=== PATIENT | male | born 1970 | race African-American/Black ===

== ENCOUNTER 2022-06-17 12:13 | Inpatient (IN) ==
[2022-06-17] MEDS ORDERED: MORPHINE SULFATE INJ 4 MG IVP ONE (12:26)
--- NOTE | 2022-06-17 12:26 | DR.ABDMALE ---
HPI Time seen Time Seen by Provider: 06/17/22 12:18 Complaint Chief Complaint Doctors Comments: 52 y/o male brought in for abdominal pain by EMS. Started yesterday, gradual onset. Located across lower abdomen, does not radiate. + worse with moving, coughing. Nothing makes it better. + nausea, vomited once. No bowel of bladder complaints. Denies fever, URI symptoms. Reviewed Nurses Notes Review: Yes Source History provided by:: patient Mode of arrival Mode of Arrival: EMS PMH PMH Past Medical History: Arthritis and Hypertension Past Surgical History: Yes Surgical History: Ortho Surgery Family History Family Medical History: Diabetes Mellitus, Cancer and Hypertension Social History Does patient currently use any type of tobacco product: Yes Alcohol Use: DAILY Do you use any recreational Drugs:: No ROS Review of Systems Constitutional: Weakness Eyes: No Symptoms Reported ENTM: No Symptoms Reported Respiratoy: No Symptoms Reported Cardiovascular: No Symptoms Reported Gastrointestinal/Abdominal: See HPI Genitourinary: No Symptoms Reported Neurological: No Symptoms Reported Musculoskeletal: No Symptoms Reported Integumentary: No Symptoms Reported Psychiatric: No Symptoms Reported All Other Systems: Reviewed and Negative PE Vital Signs Vital Signs: Temp Pulse Resp BP BP Pulse Ox O2 Del Method 08/18/19 11:48 128/96 06/17/22 15:00 96 H 99 06/17/22 15:00 123/89 06/17/22 14:45 94 H 99 06/17/22 14:31 132/95 06/17/22 14:31 95 H 99 06/17/22 14:30 108 H 100 06/17/22 14:15 96 H 99 06/17/22 14:00 93 H 100 06/17/22 14:00 133/91 06/17/22 13:57 20 06/17/22 13:51 93 H 99 06/17/22 13:30 122/78 06/17/22 13:06 92 H 100 06/17/22 13:27 20 06/17/22 13:00 91 H 100 06/17/22 13:00 144/92 06/17/22 12:45 92 H 100 06/17/22 12:30 97 H 100 06/17/22 12:30 148/114 06/17/22 12:17 98 H 100 06/17/22 12:34 20 06/17/22 12:19 97.9 F 101 H 22 143/101 100 Room Air 09/10/21 11:38 140/86 General General Appearance: Alert and In No Apparent Distress Eyes Eye exam: PERRL and EOMI ENT ENT Exam: Mucous Membranes Moist Neck Neck Exam: Normal Inspection Respiratory Respiratory Exam: Normal Lung Sounds Bilat; negative Accessory Muscle Use or Respiratory Distress Cardiovascular Cardiovascular Exam: Regular Rate, Normal Rhythm and Normal Heart Sounds Abdominal Exam Abdominal Exam: Tenderness, Guarding, Rebound and Hypoactive Bowel Sounds Extremeties Extremities Exam: Normal Inspection and Full ROM; negative Edema Neurologic Neurological Exam: Alert, Oriented X3 and CN II-XII Intact; negative Motor Sensory Deficit Skin Skin Exam: Warm and Dry COURSE Treatment Treatment: 52 y/o male with worsening abdominal pain since yesterday. Exam concerning for acute abdomen. W/u initiated. Pt given IV fluids, IV analgesia. Portable chest without obvious free air. Labs acceptable. CT abd/pelvis performed. + large amount of free air evident on scan. Radiologist believes perforation around 2nd portion of duodenum.ascending colon. Consulted with Dr Ortiz, general surgery. Pt given IV antibiotics, additional IV analgesia. He will take to surgery, admit. ROR Labs Reviewed Laboratory Results Reviewed?: Yes Result Diagrams: 06/17/22 12:27 06/17/22 12:27 Laboratory: WBC 9.2 X10^3/uL (3.6-10.0) 06/17/22 12: RBC 4.94 X10^6/uL (4.7-6.0) 06/17/22 12:27 Hgb 15.0 g/dL (13.5-18.0) 06/17/22 12: Hct 45.3 % (42.0-54.0) 06/17/22 12:27 MCV 91.7 fL (80.0-100.0) 06/17/22 12: MCH 30.4 pg (27.0-34.0) 06/17/22 12: MCHC 33.2 g/dL (33.0-35.0) 06/17/22 12: RDW 14.0 % (11.6-16.5) 06/17/22 12:27 Plt Count 305 X10^3/uL (150.0-450.0) 06/17/22 12:27 MPV 8.1 fL (7.4-11.0) 06/17/22 12: Neut % (Auto) 86.4 % (42.0-75.0) H 06/17/22 12: Lymph % (Auto) 9.6 % (21.0-51.0) L 06/17/22 12: [place] % (Auto) 3.8 % (0.0-13.0) 06/17/22 12: Eos % (Auto) 0.0 % (0.9-2.9) L 06/17/22 12: Baso % (Auto) 0.2 % (0.2-1.0) 06/17/22 12: Neut # (Auto) 8.0 x10^3/uL (2.2-4.8) H 06/17/22 12: Lymph # (Auto) 0.9 X10^3/uL (1.3-2.9) L 06/17/22 12: [place] # (Auto) 0.3 x10^3/uL (0.3-0.8) 06/17/22 12: Eos # (Auto) 0.0 x10^3/uL (0.0-0.2) 06/17/22 12: Baso # (Auto) 0.0 X10^3/uL (0.0-0.1) 06/17/22 12: Absolute Nucleated RBC 0.1 /100WBC 06/17/22 12: Sodium 134 mmol/L (136-145) L 06/17/22 12: Corrected Sodium 135 mmol/L (136-145) L 06/17/22 12: Potassium 4.6 mmol/L (3.5-5.1) 06/17/22 12: Chloride 98 mmol/L (98-107) 06/17/22 12: Carbon Dioxide 28.1 mmol/L (21-32) 06/17/22 12: BUN 17 mg/dL (7-18) 06/17/22 12: Creatinine 1.05 mg/dL (0.70-1.30) 06/17/22 12: Est GFR (MDRD) Af Amer > 60 (>60) 06/17/22 12: Est GFR (MDRD) Non-Af > 60 (>60) 06/17/22 12:27 Glucose 137 mg/dL (65-99) H 06/17/22 12:27 Calcium 8.5 mg/dL (8.5-10.1) 06/17/22 12:27 Corrected Calcium TNP 06/17/22 12:27 Total Bilirubin 1.20 mg/dL (0.2-1.0) H 06/17/22 12:27 AST 14 Units/L (15-37) L 06/17/22 12:27 ALT 13 Units/L (12-78) 06/17/22 12:27 Alkaline Phosphatase 53 Units/L (46-116) 06/17/22 12:27 Total Protein 7.4 g/dL (6.4-8.2) 06/17/22 12:27 Albumin 3.4 g/dL (3.4-5.0) 06/17/22 12:27 Globulin 4.0 g/dL (2.5-4.5) 06/17/22 12:27 Albumin/Globulin Ratio 0.9 Ratio (1.1-2.1) L 06/17/22 12:27 Lipase 114 Units/L (73-393) 06/17/22 12:27 Labs acceptable. XRAY XRAY Interpreted by: Self X-ray Results: CXR - normal. CT abd/pelvis - + lg amount of free air. EKG Rate: 91 [place]: RAD Rhythm: NSR ST: Normal Opioid Opioid Risk Tool Age (Daniel box if 16-45): No History of Preadolescent Sexual Abuse: No Total: 0 Total Score Risk Category: Low Risk Copyright: Erasmo LITTLE predicting aberrant behaviors Discharge Plan Diagnosis Discharge Problem: Intra-abdominal free air of unknown etiology Discharge Plan Patient Disposition: 09 ADMITTED INPATIENT Condition: Stable Prescriptions: No Action gabapentin 300 mg capsule 300 mg PO TID MDD 3 Qty: 30 0RF meloxicam 7.5 mg tablet 7.5 mg PO DAILY MDD 1 Qty: 30 0RF ciprofloxacin HCl [Cipro] 500 mg tablet 500 mg PO BID MDD 2 Qty: 20 0RF lisinopril [Zestril] 5 mg Tablet 5 mg PO BID Qty: 30 0RF Health Concerns: Post Hospitalization: new medications and changes needed to prevent readmission or further decline. Pt educated and given instructions on all concerns. Plan of Treatment: Continue with present treatment and follow up plan. Pt is to keep follow up appointment as instructed and take medications as ordered. Orders to Discharge Patient Discharge Orders: Transfer (Routine); Ordered 06/17/22 Ordered By: Juan David Nash Follow ups/Referrals Follow ups/Referrals: [facility],None [Primary Care Provider] - 3 days
[2022-06-17] MEDS ORDERED: MORPHINE SULFATE INJ 4 MG ONE (12:28)
[2022-06-17 12:33] LABS: BASOPHILS % (AUTO) 0.2 % (0.2-1.0); HEMATOCRIT 45.3 % (42.0-54.0); LYMPHOCYTES # (AUTO) 0.9 X10^3/uL (1.3-2.9); LYMPHOCYTES % (AUTO) 9.6 % (21.0-51.0); MEAN CORPUSCULAR HEMOGLOBIN 30.4 pg (27.0-34.0); MEAN CORPUSCULAR HGB CONC 33.2 g/dL (33.0-35.0); MEAN CORPUSCULAR VOLUME 91.7 fL (80.0-100.0); MEAN PLATELET VOLUME 8.1 fL (7.4-11.0); MONOCYTES # (AUTO) 0.3 x10^3/uL (0.3-0.8); MONOCYTES % (AUTO) 3.8 % (0.0-13.0); NEUTROPHILS % (AUTO) 86.4 % (42.0-75.0); RED BLOOD COUNT 4.94 X10^6/uL (4.7-6.0); WHITE BLOOD COUNT 9.2 X10^3/uL (3.6-10.0)
[2022-06-17 12:45] LABS: ALANINE AMINOTRANSFERASE 13 Units/L (12-78); ALBUMIN 3.4 g/dL (3.4-5.0); ALKALINE PHOSPHATASE 53 Units/L (46-116); ASPARTATE AMINO TRANSFERASE 14 Units/L (15-37); BLOOD UREA NITROGEN 17 mg/dL (7-18); CALCIUM 8.5 mg/dL (8.5-10.1); CARBON DIOXIDE 28.1 mmol/L (21-32); CHLORIDE 98 mmol/L (98-107); COR NA(FOR HYPERGLY) 135 mmol/L (136-145); CREATININE 1.05 mg/dL (0.70-1.30); LIPASE 114 Units/L (73-393); SODIUM 134 mmol/L (136-145); TOTAL PROTEIN 7.4 g/dL (6.4-8.2); eGFR NON BLACK RACES > 60 (>60)
--- NOTE | 2022-06-17 13:12 | RAD ---
HISTORYSOB, COUGH, ABD PAINSTUDYSingle-view chestCOMPARISONNone availableFINDINGSThe trachea is midline. The cardiac silhouette is unremarkable . The lungs are clear without focal infiltrate or effusion. The bony thorax is unremarkable.IMPRESSIONNo acute cardiopulmonary disease.Electronically signed by: OLYA VERGARA (Jun 17, 2022 13:11:35)
[2022-06-17] MEDS ORDERED: DILAUDID INJ IVP ONE (13:24)
[2022-06-17] MEDS ORDERED: DILAUDID INJ ONE ×2 (13:25→18:25)
[2022-06-17] MEDS ORDERED: LEVAQUIN PREMIX IV 750 MG 750 MG/150 ML BAG IV ONE ×2 (13:27→13:32)
[2022-06-17] MEDS ORDERED: FLAGYL IV PREMIX 500 MG BAG 500 MG/100 ML BAG IV ONE ×2 (13:27→13:31)
[2022-06-17] MEDS ORDERED: NS 1,000 ML IV 1,000 ML ONE (13:33)
[2022-06-17] MEDS ORDERED: NS 1,000 ML IV 1,000 ML IV SCH (14:00)
--- NOTE | 2022-06-17 14:07 | EKG ---
Test Reason : preop clearance Blood Pressure : */* mmHG Vent. Rate : 91 BPM Atrial Rate : 91 BPM P-R Int : 126 ms QRS Dur : 72 ms QT Int : 360 ms P-R-T Axes : 75 94 78 degrees QTc Int : 442 ms Normal sinus rhythm Rightward axis Septal infarct , age undetermined Abnormal ECG No previous ECGs available Confirmed by Jae Nichols ([id number]) on 06/20/2022 5:34:17 PM Referred By: Confirmed By: Jae Nichols
--- NOTE | 2022-06-17 14:38 | CT ---
HISTORYRUQ, LOWER ABD PAINSTUDYABDOMEN/PELVIS WITH CONCOMPARISONChest x-ray performed on same dayTECHNIQUEMultiple axial images of the abdomen and pelvis were obtained from the lung bases to the pubic symphysis after the administration of IV contrast. Dose reduction techniques including Automated Exposure Control (AEC) and adjustment of mA and kV were utilized.FINDINGS[Lung bases are clear. Heart size is normal. 3.2 x 2.1 by at least 5.4 cm intermediate density masses noted within the posterior mediastinum abutting the esophagus on axial image 5.No focal hepatic lesion. Gallbladder is moderately dilated without CT evidence of calcified stone or bile duct dilatation. The spleen is normal. Pancreas demonstrates ductal dilatation without obstructing stone or mass within the pancreatic head. Adrenal glands are normal. Kidneys are normal. There is inflammatory change and localized gas noted adjacent to the 2nd portion duodenum concerning for perforated duodenal ulcer. There is moderately inflamed, thick walled loops of left abdominal small bowel with moderate amount of free fluid throughout the abdomen and pelvis. The fluid is not definitely simple and may represent combination of low-density fluid and hematoma.Urinary bladder is distended. Prostate gland is unremarkable. The rectum is unremarkable. There are thick-walled loops of proximal transverse and ascending colon. Large volume free air is noted within the abdomen with multiple foci of gas within the pelvis. There is thickening of the peritoneal cavity consistent with peritonitis. Abdominal aorta is normal in caliber.IMPRESSIONLarge volume pneumoperitoneum and intermediate density abdominal and pelvic free fluid consistent with viscus perforation, given the localized inflammatory change and gas adjacent to the 2nd portion of the duodenum and ascending colon these with be the most likely source of perforation. Urgent surgical consultation is needed for further evaluation.Hyperemic, thick walled loops of left abdominal small bowel potentially are reactive to peritonitis; however underlying ischemic bowel is not excluded. Correlation with lactic acid levels and surgical consultation is needed for further evaluation.Additional chronic, incidental findings as described above.Approximate 3.2 x 2.1 x 5.4 cm intermediate density area/mass within the posterior mediastinal causing mild mass effect on the distal esophagus, given density this may represent trapped peritoneal fluid extending through the hiatus; however underlying solid mass in this location is not excluded. Recommend attention at time of surgery and potentially thoracic MRI with and without contrast for further evaluation as clinically warranted.Electronically signed by: DARIUS LARRY (Jun 17, 2022 14:37:34)
[2022-06-17] MEDS ORDERED: STERILE WATER IRRIGATION IR ONE (15:06)
[2022-06-17] MEDS ORDERED: DUONEB 0.5 MG/3 MG (3 mL) NEB ONE (15:28)
[2022-06-17 15:53] LABS: BILIRUBIN,URINE NEGATIVE (NEGATIVE); BLOOD/HEMOGLOBIN,URINE 1+ (NEGATIVE); GLUCOSE, URINE NEGATIVE (NEGATIVE); KETONES,URINE 1+ (NEGATIVE); LEUKOCYTE ESTERASE ,URINE 1+ (NEGATIVE); NITRITES,URINE NEGATIVE (NEGATIVE); PH,URINE 6.5 (5.0 - 8.0); PROTEIN,URINE 2+ (NEGATIVE); UROBILINOGEN,URINE 1+ (NORMAL)
[2022-06-17 16:06] LABS: APPEARANCE,URINE CLEAR (CLEAR); BACTERIA,URINE TRACE /HPF (NEGATIVE); COLOR,URINE DARK YELLOW (YELLOW); RBC,URINE 0-2 /HPF (0-3); SQUAMOUS EPITHELIAL CELL,UR RARE /HPF (NEGATIVE)
[2022-06-17] MEDS ORDERED: NEO-SYNEPHRINE INJ ONE (16:17)
[2022-06-17] MEDS ORDERED: DIPRIVAN VIAL 20 ML ONE (16:17)
[2022-06-17] MEDS ORDERED: MAGNESIUM SULFATE 50% INJ VIAL ONE (16:17)
[2022-06-17] MEDS ORDERED: ZEMURON 100 MG VIAL ONE (16:18)
[2022-06-17] MEDS ORDERED: QUELICIN (OR ANECTINE) ONE (16:18)
[2022-06-17] MEDS ORDERED: ZOFRAN INJ 4 MG VIAL ONE (16:18)
[2022-06-17] MEDS ORDERED: KETAMINE HCL ONE (16:25)
[2022-06-17] MEDS ORDERED: SUPRANE ONE ×2 (16:25→16:27)
[2022-06-17] MEDS ORDERED: FENTANYL VIAL INJ 250 mcg ONE (16:28)
[2022-06-17] MEDS ORDERED: ZOFRAN INJ 4 MG VIAL IVP PRN ×2 (16:33→18:40)
[2022-06-17] MEDS ORDERED: BENADRYL INJ 50 MG VIAL IVP PRN (16:33)
[2022-06-17] MEDS ORDERED: BARHEMSYS INJ IVP PRN (16:33)
[2022-06-17] MEDS ORDERED: POLYMYXIN B SULFATE ONE ×2 (16:41→17:13)
[2022-06-17] MEDS ORDERED: BRIDION ONE (17:00)
[2022-06-17] MEDS ORDERED: LR 1,000 ML IV 1,000 ML IV ONE (17:06)
[2022-06-17] MEDS: DILAUDID INJ IVP PRN ×4 (18:27→22:29)
[2022-06-17] MEDS ORDERED: DILAUDID INJ IVP PRN (18:39)
[2022-06-17] MEDS: D5 1/2 NS 1,000 ML 1,000 ML IV SCH (19:39)
[2022-06-17] MEDS: PROTONIX INJ 40 MG VIAL IVP SCH (20:54)
[2022-06-17] MEDS: FLAGYL IV PREMIX 500 MG BAG 500 MG/100 ML BAG IV SCH (20:55)
[2022-06-18] MEDS: D5 1/2 NS 1,000 ML 1,000 ML IV SCH ×5 (00:30→23:35)
[2022-06-18] MEDS: FLAGYL IV PREMIX 500 MG BAG 500 MG/100 ML BAG IV SCH ×3 (03:18→19:51)
[2022-06-18 05:08] LABS: BASOPHILS % (AUTO) 0.1 % (0.2-1.0); HEMATOCRIT 38.6 % (42.0-54.0); HEMOGLOBIN 13.1 g/dL (13.5-18.0); LYMPHOCYTES # (AUTO) 0.9 X10^3/uL (1.3-2.9); LYMPHOCYTES % (AUTO) 9.2 % (21.0-51.0); MEAN CORPUSCULAR HEMOGLOBIN 31.4 pg (27.0-34.0); MEAN CORPUSCULAR VOLUME 92.5 fL (80.0-100.0); MEAN PLATELET VOLUME 8.7 fL (7.4-11.0); MONOCYTES # (AUTO) 0.5 x10^3/uL (0.3-0.8); MONOCYTES % (AUTO) 5.2 % (0.0-13.0); NEUTROPHILS # (AUTO) 8.7 x10^3/uL (2.2-4.8); NEUTROPHILS % (AUTO) 85.5 % (42.0-75.0); RED BLOOD COUNT 4.17 X10^6/uL (4.7-6.0); RED CELL DISTRIBUTION WIDTH 13.9 % (11.6-16.5); WHITE BLOOD COUNT 10.2 X10^3/uL (3.6-10.0)
[2022-06-18] MEDS: DILAUDID INJ IVP PRN ×3 (05:21→21:07)
[2022-06-18 05:24] LABS: ALANINE AMINOTRANSFERASE 45 Units/L (12-78); ALBUMIN 2.5 g/dL (3.4-5.0); ALKALINE PHOSPHATASE 55 Units/L (46-116); ASPARTATE AMINO TRANSFERASE 58 Units/L (15-37); BLOOD UREA NITROGEN 22 mg/dL (7-18); CALCIUM 8.1 mg/dL (8.5-10.1); CARBON DIOXIDE 26.3 mmol/L (21-32); CHLORIDE 101 mmol/L (98-107); COR CA(FOR HYPOALB) 9.3 mg/dL (8.5-10.1); SODIUM 136 mmol/L (136-145); TOTAL PROTEIN 6.1 g/dL (6.4-8.2); eGFR NON BLACK RACES > 60 (>60)
[2022-06-18] MEDS: LEVAQUIN PREMIX IV 750 MG 750 MG/150 ML BAG IV SCH (09:20)
[2022-06-18] MEDS: PROTONIX INJ 40 MG VIAL IVP SCH ×2 (09:20→20:28)
--- NOTE | 2022-06-18 09:48 | DR.PROGNOT ---
HOSPITAL PROGRESS NOTE Progress Note for Day of: Progress Note Date: 06/18/22 Chief Complaint Chief Complaint: PO day 1 . feeling better today . fair urine out put . moderate incisional pain . afebrile . Past Medical Family Social History Allergies: Allergies No Known Drug Allergies Allergy (Verified 09/10/21 11:50) Review Of Systems ROS: No change since H&P Vital Signs Vital Signs: Temperature 98.5 F Pulse Rate [Left Brachial] 83 Pulse Rate 81 Respiratory Rate 13 Blood Pressure [Right Arm] 109/73 Blood Pressure 103/69 O2 Sat by Pulse Oximetry 98 Physical Exam GI:Auscultation: Decreased GI:Palpation: Normal GI: Tenderness: Moderate (moderate diffuse tenderness . BS hypoactive ) Mood Description: Calm Speech Pattern: Clear and Appropriate Laboratory and Diagnostics Result Diagrams: 06/18/22 04:05 06/18/22 04:05 Labs: Laboratory WBC 10.2 X10^3/uL (3.6-10.0) H 06/18/22 04:05 RBC 4.17 X10^6/uL (4.7-6.0) L 06/18/22 04:05 Hgb 13.1 g/dL (13.5-18.0) L 06/18/22 04:05 Hct 38.6 % (42.0-54.0) L 06/18/22 04:05 MCV 92.5 fL (80.0-100.0) 06/18/22 04:05 MCH 31.4 pg (27.0-34.0) 06/18/22 04:05 MCHC 34.0 g/dL (33.0-35.0) 06/18/22 04:05 RDW 13.9 % (11.6-16.5) 06/18/22 04:05 Plt Count 228 X10^3/uL (150.0-450.0) 06/18/22 04:05 MPV 8.7 fL (7.4-11.0) 06/18/22 04:05 Neut % (Auto) 85.5 % (42.0-75.0) H 06/18/22 04:05 Lymph % (Auto) 9.2 % (21.0-51.0) L 06/18/22 04:05 [place] % (Auto) 5.2 % (0.0-13.0) 06/18/22 04:05 Eos % (Auto) 0.0 % (0.9-2.9) L 06/18/22 04:05 Baso % (Auto) 0.1 % (0.2-1.0) L 06/18/22 04:05 Neut # (Auto) 8.7 x10^3/uL (2.2-4.8) H 06/18/22 04:05 Lymph # (Auto) 0.9 X10^3/uL (1.3-2.9) L 06/18/22 04:05 [place] # (Auto) 0.5 x10^3/uL (0.3-0.8) 06/18/22 04:05 Eos # (Auto) 0.0 x10^3/uL (0.0-0.2) 06/18/22 04:05 Baso # (Auto) 0.0 X10^3/uL (0.0-0.1) 06/18/22 04:05 Absolute Nucleated RBC 0.0 /100WBC 06/18/22 04:05 Sodium 136 mmol/L (136-145) 06/18/22 04:05 Corrected Sodium TNP 06/18/22 04:05 Potassium 4.2 mmol/L (3.5-5.1) 06/18/22 04:05 Chloride 101 mmol/L (98-107) 06/18/22 04:05 Carbon Dioxide 26.3 mmol/L (21-32) 06/18/22 04:05 BUN 22 mg/dL (7-18) H 06/18/22 04:05 Creatinine 1.00 mg/dL (0.70-1.30) 06/18/22 04:05 Est GFR (MDRD) Af Amer > 60 (>60) 06/18/22 04:05 Est GFR (MDRD) Non-Af > 60 (>60) 06/18/22 04:05 Glucose 108 mg/dL (65-99) H 06/18/22 04:05 POC Glucose (mg/dL) 120 mg/dL (65-99) H 06/18/22 05:25 Calcium 8.1 mg/dL (8.5-10.1) L 06/18/22 04:05 Corrected Calcium 9.3 mg/dL (8.5-10.1) 06/18/22 04:05 Total Bilirubin 0.60 mg/dL (0.2-1.0) 06/18/22 04:05 AST 58 Units/L (15-37) H 06/18/22 04:05 ALT 45 Units/L (12-78) 06/18/22 04:05 Alkaline Phosphatase 55 Units/L (46-116) 06/18/22 04:05 Troponin I High Sens 4.0 ng/L (4.0-60.0) 06/17/22 12:27 Total Protein 6.1 g/dL (6.4-8.2) L 06/18/22 04:05 Albumin 2.5 g/dL (3.4-5.0) L 06/18/22 04:05 Globulin 3.6 g/dL (2.5-4.5) 06/18/22 04:05 Albumin/Globulin Ratio 0.7 Ratio (1.1-2.1) L 06/18/22 04:05 Lipase 114 Units/L (73-393) 06/17/22 12:27 Specimen Type Clean catch urine 06/17/22 15:37 Urine Color Dark yellow (YELLOW) 06/17/22 15:37 Urine Appearance Clear (CLEAR) 06/17/22 15:37 Urine pH 6.5 (5.0 - 8.0) 06/17/22 15:37 Ur Specific [place] 1.010 (1.000-1.030) 06/17/22 15:37 Urine Protein 2+ (NEGATIVE) 06/17/22 15:37 Urine Glucose (UA) Negative (NEGATIVE) 06/17/22 15:37 Urine Ketones 1+ (NEGATIVE) 06/17/22 15:37 Urine Blood 1+ (NEGATIVE) 06/17/22 15:37 Urine Nitrite Negative (NEGATIVE) 06/17/22 15:37 Urine Bilirubin Negative (NEGATIVE) 06/17/22 15:37 Urine Urobilinogen 1+ (NORMAL) 06/17/22 15:37 Ur Leukocyte Esterase 1+ (NEGATIVE) 06/17/22 15:37 Urine RBC 0-2 /HPF (0-3) 06/17/22 15:37 Urine WBC None seen /HPF (0-5) 06/17/22 15:37 Ur Squamous Epith Cells Rare /HPF (NEGATIVE) 06/17/22 15:37 Urine Bacteria Trace /HPF (NEGATIVE) 06/17/22 15:37 Urine Mucus Rare /HPF (NEGATIVE) 06/17/22 15:37 Ur Culture Indicated? No/not indicated 06/17/22 15:37 Assessment and Plan 1: perforated DU . peritonitis s/p laparotomy , closure and plication perforated DU . same PO care . OOB with binder , keep NPO . Problem Patient Problems: Patient Problems (Updated 06/17/22 @ 13:38 by Juan David Nash) Intra-abdominal free air of unknown etiology (Acute) K66.8
[2022-06-18] MEDS: LOVENOX INJ 40 MG SYR SC SCH (11:15)
[2022-06-18] MEDS: NICOTINE PATCH TD SCH (11:18)
[2022-06-19] MEDS: FLAGYL IV PREMIX 500 MG BAG 500 MG/100 ML BAG IV SCH ×3 (03:31→19:25)
[2022-06-19] MEDS: D5 1/2 NS 1,000 ML 1,000 ML IV SCH ×4 (03:38→18:16)
[2022-06-19] MEDS: DILAUDID INJ IVP PRN ×3 (03:39→18:16)
[2022-06-19 04:50] LABS: BASOPHILS % (AUTO) 0.2 % (0.2-1.0); EOSINOPHILS % (AUTO) 0.5 % (0.9-2.9); HEMOGLOBIN 11.9 g/dL (13.5-18.0); LYMPHOCYTES # (AUTO) 0.9 X10^3/uL (1.3-2.9); LYMPHOCYTES % (AUTO) 10.1 % (21.0-51.0); MEAN CORPUSCULAR HEMOGLOBIN 31.1 pg (27.0-34.0); MEAN CORPUSCULAR VOLUME 91.4 fL (80.0-100.0); MEAN PLATELET VOLUME 8.6 fL (7.4-11.0); MONOCYTES # (AUTO) 0.6 x10^3/uL (0.3-0.8); MONOCYTES % (AUTO) 6.3 % (0.0-13.0); NEUTROPHILS # (AUTO) 7.3 x10^3/uL (2.2-4.8); NEUTROPHILS % (AUTO) 82.9 % (42.0-75.0); RED BLOOD COUNT 3.83 X10^6/uL (4.7-6.0); RED CELL DISTRIBUTION WIDTH 13.6 % (11.6-16.5); WHITE BLOOD COUNT 8.8 X10^3/uL (3.6-10.0)
[2022-06-19 05:14] LABS: ALANINE AMINOTRANSFERASE 25 Units/L (12-78); ALBUMIN 2.1 g/dL (3.4-5.0); ALKALINE PHOSPHATASE 40 Units/L (46-116); ASPARTATE AMINO TRANSFERASE 26 Units/L (15-37); BLOOD UREA NITROGEN 10 mg/dL (7-18); CARBON DIOXIDE 24.7 mmol/L (21-32); CHLORIDE 100 mmol/L (98-107); COR CA(FOR HYPOALB) 9.5 mg/dL (8.5-10.1); COR NA(FOR HYPERGLY) 133 mmol/L (136-145); CREATININE 0.76 mg/dL (0.70-1.30); SODIUM 133 mmol/L (136-145); TOTAL PROTEIN 5.7 g/dL (6.4-8.2); eGFR NON BLACK RACES > 60 (>60)
[2022-06-19] MEDS: LOVENOX INJ 40 MG SYR SC SCH (08:26)
[2022-06-19] MEDS: NICOTINE PATCH TD SCH (08:26)
[2022-06-19] MEDS: PROTONIX INJ 40 MG VIAL IVP SCH ×3 (08:26→20:05)
--- NOTE | 2022-06-19 08:37 | DR.PROGNOT ---
HOSPITAL PROGRESS NOTE Progress Note for Day of: Progress Note Date: 06/19/22 Chief Complaint Chief Complaint: PO day 2. feeling better today . fair urine out put . ( Garcia is out ). moderate incisional pain . afebrile . Past Medical Family Social History Past Med/Fam/Surg Hx: No changes since H&P Allergies: Allergies No Known Drug Allergies Allergy (Verified 09/10/21 11:50) Review Of Systems ROS: No change since H&P Vital Signs Vital Signs: Temperature 99.8 F Pulse Rate [Left Brachial] 90 Pulse Rate 81 Respiratory Rate 20 Blood Pressure [Right Arm] 126/91 Blood Pressure 103/69 O2 Sat by Pulse Oximetry 98 Physical Exam Oriented: Normal Respiratory: Normal Cardiovascular: Normal GI:Auscultation: Normal (soft , abdomen with diffuse tenderneaa , BS+) and Decreased GI:Palpation: Normal GI: Tenderness: Moderate (moderate diffuse tenderness . BS hypoactive ) Mood Description: Calm Speech Pattern: Clear and Appropriate Laboratory and Diagnostics Result Diagrams: 06/19/22 04:10 06/19/22 04:10 Labs: 06/17/22 17:04 Peritoneal Fluid Wound Gram Stain - Final 06/17/22 17:04 Peritoneal Fluid Wound Culture - Preliminary Laboratory WBC 8.8 X10^3/uL (3.6-10.0) 06/19/22 04:10 RBC 3.83 X10^6/uL (4.7-6.0) L 06/19/22 04:10 Hgb 11.9 g/dL (13.5-18.0) L 06/19/22 04:10 Hct 35.0 % (42.0-54.0) L 06/19/22 04:10 MCV 91.4 fL (80.0-100.0) 06/19/22 04:10 MCH 31.1 pg (27.0-34.0) 06/19/22 04:10 MCHC 34.0 g/dL (33.0-35.0) 06/19/22 04:10 RDW 13.6 % (11.6-16.5) 06/19/22 04:10 Plt Count 215 X10^3/uL (150.0-450.0) 06/19/22 04:10 MPV 8.6 fL (7.4-11.0) 06/19/22 04:10 Neut % (Auto) 82.9 % (42.0-75.0) H 06/19/22 04:10 Lymph % (Auto) 10.1 % (21.0-51.0) L 06/19/22 04:10 [place] % (Auto) 6.3 % (0.0-13.0) 06/19/22 04:10 Eos % (Auto) 0.5 % (0.9-2.9) L 06/19/22 04:10 Baso % (Auto) 0.2 % (0.2-1.0) 06/19/22 04:10 Neut # (Auto) 7.3 x10^3/uL (2.2-4.8) H 06/19/22 04:10 Lymph # (Auto) 0.9 X10^3/uL (1.3-2.9) L 06/19/22 04:10 [place] # (Auto) 0.6 x10^3/uL (0.3-0.8) 06/19/22 04:10 Eos # (Auto) 0.0 x10^3/uL (0.0-0.2) 06/19/22 04:10 Baso # (Auto) 0.0 X10^3/uL (0.0-0.1) 06/19/22 04:10 Absolute Nucleated RBC 0.0 /100WBC 06/19/22 04:10 Sodium 133 mmol/L (136-145) L 06/19/22 04:10 Corrected Sodium 133 mmol/L (136-145) L 06/19/22 04:10 Potassium 3.6 mmol/L (3.5-5.1) 06/19/22 04:10 Chloride 100 mmol/L (98-107) 06/19/22 04:10 Carbon Dioxide 24.7 mmol/L (21-32) 06/19/22 04:10 BUN 10 mg/dL (7-18) 06/19/22 04:10 Creatinine 0.76 mg/dL (0.70-1.30) 06/19/22 04:10 Est GFR (MDRD) Af Amer > 60 (>60) 06/19/22 04:10 Est GFR (MDRD) Non-Af > 60 (>60) 06/19/22 04:10 Glucose 111 mg/dL (65-99) H 06/19/22 04:10 POC Glucose (mg/dL) 108 mg/dL (65-99) H 06/19/22 05:32 Calcium 8.0 mg/dL (8.5-10.1) L 06/19/22 04:10 Corrected Calcium 9.5 mg/dL (8.5-10.1) 06/19/22 04:10 Total Bilirubin 0.60 mg/dL (0.2-1.0) 06/19/22 04:10 AST 26 Units/L (15-37) 06/19/22 04:10 ALT 25 Units/L (12-78) 06/19/22 04:10 Alkaline Phosphatase 40 Units/L (46-116) L 06/19/22 04:10 Troponin I High Sens 4.0 ng/L (4.0-60.0) 06/17/22 12:27 Total Protein 5.7 g/dL (6.4-8.2) L 06/19/22 04:10 Albumin 2.1 g/dL (3.4-5.0) L 06/19/22 04:10 Globulin 3.6 g/dL (2.5-4.5) 06/19/22 04:10 Albumin/Globulin Ratio 0.6 Ratio (1.1-2.1) L 06/19/22 04:10 Lipase 114 Units/L (73-393) 06/17/22 12:27 Specimen Type Clean catch urine 06/17/22 15:37 Urine Color Dark yellow (YELLOW) 06/17/22 15:37 Urine Appearance Clear (CLEAR) 06/17/22 15:37 Urine pH 6.5 (5.0 - 8.0) 06/17/22 15:37 Ur Specific [place] 1.010 (1.000-1.030) 06/17/22 15:37 Urine Protein 2+ (NEGATIVE) 06/17/22 15:37 Urine Glucose (UA) Negative (NEGATIVE) 06/17/22 15:37 Urine Ketones 1+ (NEGATIVE) 06/17/22 15:37 Urine Blood 1+ (NEGATIVE) 06/17/22 15:37 Urine Nitrite Negative (NEGATIVE) 06/17/22 15:37 Urine Bilirubin Negative (NEGATIVE) 06/17/22 15:37 Urine Urobilinogen 1+ (NORMAL) 06/17/22 15:37 Ur Leukocyte Esterase 1+ (NEGATIVE) 06/17/22 15:37 Urine RBC 0-2 /HPF (0-3) 06/17/22 15:37 Urine WBC None seen /HPF (0-5) 06/17/22 15:37 Ur Squamous Epith Cells Rare /HPF (NEGATIVE) 06/17/22 15:37 Urine Bacteria Trace /HPF (NEGATIVE) 06/17/22 15:37 Urine Mucus Rare /HPF (NEGATIVE) 06/17/22 15:37 Ur Culture Indicated? No/not indicated 06/17/22 15:37 Assessment and Plan 1: perforated DU . peritonitis s/p laparotomy , closure and plication perforated DU . same PO care . OOB with binder , to D/C NGT and start clear liquid . Problem Patient Problems: Patient Problems (Updated 06/17/22 @ 13:38 by Juan David Nash) Intra-abdominal free air of unknown etiology (Acute) K66.8
[2022-06-19] MEDS: LEVAQUIN PREMIX IV 750 MG 750 MG/150 ML BAG IV SCH (09:00)
--- NOTE | 2022-06-19 09:01 | DR.PROGNOT ---
HOSPITAL PROGRESS NOTE Progress Note for Day of: Progress Note Date: 06/19/22 Chief Complaint Chief Complaint: PO day 2. feeling better today . fair urine out put . ( Garcia is out ). moderate incisional pain . afebrile . Past Medical Family Social History Past Med/Fam/Surg Hx: No changes since H&P Allergies: Allergies No Known Drug Allergies Allergy (Verified 09/10/21 11:50) Review Of Systems ROS: No change since H&P Vital Signs Vital Signs: Temperature 99.8 F Pulse Rate [Left Brachial] 90 Pulse Rate 81 Respiratory Rate 20 Blood Pressure [Right Arm] 126/91 Blood Pressure 103/69 O2 Sat by Pulse Oximetry 98 Physical Exam Oriented: Normal Respiratory: Normal Cardiovascular: Normal GI:Auscultation: Decreased GI:Palpation: Normal GI: Tenderness: Diffuse (moderate ) Mood Description: Calm Speech Pattern: Clear and Appropriate Laboratory and Diagnostics Result Diagrams: 06/19/22 04:10 06/19/22 04:10 Labs: 06/17/22 17:04 Peritoneal Fluid Wound Gram Stain - Final 06/17/22 17:04 Peritoneal Fluid Wound Culture - Preliminary Laboratory WBC 8.8 X10^3/uL (3.6-10.0) 06/19/22 04:10 RBC 3.83 X10^6/uL (4.7-6.0) L 06/19/22 04:10 Hgb 11.9 g/dL (13.5-18.0) L 06/19/22 04:10 Hct 35.0 % (42.0-54.0) L 06/19/22 04:10 MCV 91.4 fL (80.0-100.0) 06/19/22 04:10 MCH 31.1 pg (27.0-34.0) 06/19/22 04:10 MCHC 34.0 g/dL (33.0-35.0) 06/19/22 04:10 RDW 13.6 % (11.6-16.5) 06/19/22 04:10 Plt Count 215 X10^3/uL (150.0-450.0) 06/19/22 04:10 MPV 8.6 fL (7.4-11.0) 06/19/22 04:10 Neut % (Auto) 82.9 % (42.0-75.0) H 06/19/22 04:10 Lymph % (Auto) 10.1 % (21.0-51.0) L 06/19/22 04:10 [place] % (Auto) 6.3 % (0.0-13.0) 06/19/22 04:10 Eos % (Auto) 0.5 % (0.9-2.9) L 06/19/22 04:10 Baso % (Auto) 0.2 % (0.2-1.0) 06/19/22 04:10 Neut # (Auto) 7.3 x10^3/uL (2.2-4.8) H 06/19/22 04:10 Lymph # (Auto) 0.9 X10^3/uL (1.3-2.9) L 06/19/22 04:10 [place] # (Auto) 0.6 x10^3/uL (0.3-0.8) 06/19/22 04:10 Eos # (Auto) 0.0 x10^3/uL (0.0-0.2) 06/19/22 04:10 Baso # (Auto) 0.0 X10^3/uL (0.0-0.1) 06/19/22 04:10 Absolute Nucleated RBC 0.0 /100WBC 06/19/22 04:10 Sodium 133 mmol/L (136-145) L 06/19/22 04:10 Corrected Sodium 133 mmol/L (136-145) L 06/19/22 04:10 Potassium 3.6 mmol/L (3.5-5.1) 06/19/22 04:10 Chloride 100 mmol/L (98-107) 06/19/22 04:10 Carbon Dioxide 24.7 mmol/L (21-32) 06/19/22 04:10 BUN 10 mg/dL (7-18) 06/19/22 04:10 Creatinine 0.76 mg/dL (0.70-1.30) 06/19/22 04:10 Est GFR (MDRD) Af Amer > 60 (>60) 06/19/22 04:10 Est GFR (MDRD) Non-Af > 60 (>60) 06/19/22 04:10 Glucose 111 mg/dL (65-99) H 06/19/22 04:10 POC Glucose (mg/dL) 108 mg/dL (65-99) H 06/19/22 05:32 Calcium 8.0 mg/dL (8.5-10.1) L 06/19/22 04:10 Corrected Calcium 9.5 mg/dL (8.5-10.1) 06/19/22 04:10 Total Bilirubin 0.60 mg/dL (0.2-1.0) 06/19/22 04:10 AST 26 Units/L (15-37) 06/19/22 04:10 ALT 25 Units/L (12-78) 06/19/22 04:10 Alkaline Phosphatase 40 Units/L (46-116) L 06/19/22 04:10 Troponin I High Sens 4.0 ng/L (4.0-60.0) 06/17/22 12:27 Total Protein 5.7 g/dL (6.4-8.2) L 06/19/22 04:10 Albumin 2.1 g/dL (3.4-5.0) L 06/19/22 04:10 Globulin 3.6 g/dL (2.5-4.5) 06/19/22 04:10 Albumin/Globulin Ratio 0.6 Ratio (1.1-2.1) L 06/19/22 04:10 Lipase 114 Units/L (73-393) 06/17/22 12:27 Specimen Type Clean catch urine 06/17/22 15:37 Urine Color Dark yellow (YELLOW) 06/17/22 15:37 Urine Appearance Clear (CLEAR) 06/17/22 15:37 Urine pH 6.5 (5.0 - 8.0) 06/17/22 15:37 Ur Specific [place] 1.010 (1.000-1.030) 06/17/22 15:37 Urine Protein 2+ (NEGATIVE) 06/17/22 15:37 Urine Glucose (UA) Negative (NEGATIVE) 06/17/22 15:37 Urine Ketones 1+ (NEGATIVE) 06/17/22 15:37 Urine Blood 1+ (NEGATIVE) 06/17/22 15:37 Urine Nitrite Negative (NEGATIVE) 06/17/22 15:37 Urine Bilirubin Negative (NEGATIVE) 06/17/22 15:37 Urine Urobilinogen 1+ (NORMAL) 06/17/22 15:37 Ur Leukocyte Esterase 1+ (NEGATIVE) 06/17/22 15:37 Urine RBC 0-2 /HPF (0-3) 06/17/22 15:37 Urine WBC None seen /HPF (0-5) 06/17/22 15:37 Ur Squamous Epith Cells Rare /HPF (NEGATIVE) 06/17/22 15:37 Urine Bacteria Trace /HPF (NEGATIVE) 06/17/22 15:37 Urine Mucus Rare /HPF (NEGATIVE) 06/17/22 15:37 Ur Culture Indicated? No/not indicated 06/17/22 15:37 Assessment and Plan 1: perforated DU . peritonitis s/p laparotomy , closure and plication perforated DU . same PO care . OOB with binder , to D/C NGT and start clear liquid . Problem Patient Problems: Patient Problems (Updated 06/19/22 @ 08:58 by SUKHI HAGAN) Intra-abdominal free air of unknown etiology (Acute) K66.8
[2022-06-19 09:43] VITALS: BMI 19.8
[2022-06-19] MEDS: ZOFRAN INJ 4 MG VIAL IVP PRN (12:37)
[2022-06-19] MEDS ORDERED: POTASSIUM CHLORIDE LIQ 20 MEQ UDC PO PRN (16:13)
[2022-06-19] MEDS ORDERED: POTASSIUM CHL 60 MEQ/NS 0.45% 500 ML IV PRN (16:13)
[2022-06-19] MEDS ORDERED: K-DUR TAB 20 MEQ PO PRN (16:13)
[2022-06-19] MEDS ORDERED: MICRO K EXTEN CAP 10 MEQ PO PRN (16:13)
[2022-06-19] MEDS ORDERED: POTASSIUM CHL 40 MEQ/NS 0.45% 500 ML IV PRN (16:13)
[2022-06-19] MEDS ORDERED: KLOR-CON PO PRN (16:13)
[2022-06-19] MEDS ORDERED: K-RIDER 10 MEQ/NS 100 ML 10 MEQ/100 ML BAG IV PRN (16:13)
[2022-06-19] MEDS ORDERED: K-DUR TAB 20 MEQ PO ONE (18:11)
[2022-06-19] MEDS: ATIVAN TAB 1 MG PO PRN (20:05)
[2022-06-19] MEDS ORDERED: MAGNESIUM SULFATE 1 GRAM/100 mL PREMIX 1 G/100 ML BAG IV ONE ×2 (20:24→21:40)
[2022-06-19] MEDS: MAGNESIUM SULFATE 1 GRAM/100 mL PREMIX 1 G/100 ML BAG IV PRN ×2 (20:31→21:48)
[2022-06-20] MEDS: DILAUDID INJ IVP PRN ×7 (00:25→23:35)
[2022-06-20] MEDS: D5 1/2 NS 1,000 ML 1,000 ML IV SCH ×4 (03:14→14:10)
[2022-06-20] MEDS: FLAGYL IV PREMIX 500 MG BAG 500 MG/100 ML BAG IV SCH ×3 (04:32→19:20)
[2022-06-20 04:47] LABS: BASOPHILS % (AUTO) 0.2 % (0.2-1.0); EOSINOPHILS # (AUTO) 0.1 x10^3/uL (0.0-0.2); EOSINOPHILS % (AUTO) 0.8 % (0.9-2.9); HEMATOCRIT 37.2 % (42.0-54.0); HEMOGLOBIN 12.6 g/dL (13.5-18.0); LYMPHOCYTES # (AUTO) 1.2 X10^3/uL (1.3-2.9); LYMPHOCYTES % (AUTO) 12.2 % (21.0-51.0); MEAN CORPUSCULAR HEMOGLOBIN 30.7 pg (27.0-34.0); MEAN CORPUSCULAR HGB CONC 33.9 g/dL (33.0-35.0); MEAN CORPUSCULAR VOLUME 90.5 fL (80.0-100.0); MEAN PLATELET VOLUME 8.6 fL (7.4-11.0); MONOCYTES # (AUTO) 1.2 x10^3/uL (0.3-0.8); MONOCYTES % (AUTO) 11.8 % (0.0-13.0); NEUTROPHILS # (AUTO) 7.3 x10^3/uL (2.2-4.8); RED BLOOD COUNT 4.12 X10^6/uL (4.7-6.0); RED CELL DISTRIBUTION WIDTH 13.8 % (11.6-16.5); WHITE BLOOD COUNT 9.7 X10^3/uL (3.6-10.0)
[2022-06-20 05:00] LABS: ALANINE AMINOTRANSFERASE 20 Units/L (12-78); ALBUMIN 2.2 g/dL (3.4-5.0); ALKALINE PHOSPHATASE 43 Units/L (46-116); ASPARTATE AMINO TRANSFERASE 18 Units/L (15-37); BLOOD UREA NITROGEN 5 mg/dL (7-18); CALCIUM 8.4 mg/dL (8.5-10.1); CARBON DIOXIDE 26.5 mmol/L (21-32); CHLORIDE 98 mmol/L (98-107); COR CA(FOR HYPOALB) 9.8 mg/dL (8.5-10.1); COR NA(FOR HYPERGLY) 133 mmol/L (136-145); CREATININE 0.74 mg/dL (0.70-1.30); MAGNESIUM 1.9 mg/dL (2.0-2.9); SODIUM 133 mmol/L (136-145); TOTAL PROTEIN 6.2 g/dL (6.4-8.2); eGFR NON BLACK RACES > 60 (>60)
[2022-06-20] MEDS: LOVENOX INJ 40 MG SYR SC SCH (09:52)
[2022-06-20] MEDS: LEVAQUIN PREMIX IV 750 MG 750 MG/150 ML BAG IV SCH (09:52)
[2022-06-20] MEDS: PROTONIX INJ 40 MG VIAL IVP SCH ×2 (09:52→20:24)
[2022-06-20] MEDS: NICOTINE PATCH TD SCH (09:53)
--- NOTE | 2022-06-20 12:32 | DR.PROGNOT ---
HOSPITAL PROGRESS NOTE Progress Note for Day of: Progress Note Date: 06/20/22 Chief Complaint Chief Complaint: PO day 3 feeling better today .tolerating diet fair urine out put . afebrile . Past Medical Family Social History Past Med/Fam/Surg Hx: No changes since H&P Allergies: Allergies No Known Drug Allergies Allergy (Verified 09/10/21 11:50) Review Of Systems ROS: No change since H&P Vital Signs Vital Signs: Temperature 98.4 F Pulse Rate [Left Brachial] 85 Pulse Rate 86 Respiratory Rate 16 Blood Pressure [Right Arm] 147/88 Blood Pressure 103/69 O2 Sat by Pulse Oximetry 97 Physical Exam Oriented: Normal Respiratory: Normal Cardiovascular: Normal GI:Auscultation: Normal GI:Palpation: Normal GI: Tenderness: Diffuse (moderate ) Mood Description: Calm Speech Pattern: Clear and Appropriate Laboratory and Diagnostics Result Diagrams: 06/20/22 04:05 06/20/22 04:05 Labs: 06/17/22 17:04 Peritoneal Fluid Wound Gram Stain - Final 06/17/22 17:04 Peritoneal Fluid Wound Culture - Final Staphylococcus Epidermidis Laboratory WBC 9.7 X10^3/uL (3.6-10.0) 06/20/22 04:05 RBC 4.12 X10^6/uL (4.7-6.0) L 06/20/22 04:05 Hgb 12.6 g/dL (13.5-18.0) L 06/20/22 04:05 Hct 37.2 % (42.0-54.0) L 06/20/22 04:05 MCV 90.5 fL (80.0-100.0) 06/20/22 04:05 MCH 30.7 pg (27.0-34.0) 06/20/22 04:05 MCHC 33.9 g/dL (33.0-35.0) 06/20/22 04:05 RDW 13.8 % (11.6-16.5) 06/20/22 04:05 Plt Count 246 X10^3/uL (150.0-450.0) 06/20/22 04:05 MPV 8.6 fL (7.4-11.0) 06/20/22 04:05 Neut % (Auto) 75.0 % (42.0-75.0) 06/20/22 04:05 Lymph % (Auto) 12.2 % (21.0-51.0) L 06/20/22 04:05 [place] % (Auto) 11.8 % (0.0-13.0) 06/20/22 04:05 Eos % (Auto) 0.8 % (0.9-2.9) L 06/20/22 04:05 Baso % (Auto) 0.2 % (0.2-1.0) 06/20/22 04:05 Neut # (Auto) 7.3 x10^3/uL (2.2-4.8) H 06/20/22 04:05 Lymph # (Auto) 1.2 X10^3/uL (1.3-2.9) L 06/20/22 04:05 [place] # (Auto) 1.2 x10^3/uL (0.3-0.8) H 06/20/22 04:05 Eos # (Auto) 0.1 x10^3/uL (0.0-0.2) 06/20/22 04:05 Baso # (Auto) 0.0 X10^3/uL (0.0-0.1) 06/20/22 04:05 Absolute Nucleated RBC 0.0 /100WBC 06/20/22 04:05 Sodium 133 mmol/L (136-145) L 06/20/22 04:05 Corrected Sodium 133 mmol/L (136-145) L 06/20/22 04:05 Potassium 3.4 mmol/L (3.5-5.1) L 06/20/22 04:05 Chloride 98 mmol/L (98-107) 06/20/22 04:05 Carbon Dioxide 26.5 mmol/L (21-32) 06/20/22 04:05 BUN 5 mg/dL (7-18) L 06/20/22 04:05 Creatinine 0.74 mg/dL (0.70-1.30) 06/20/22 04:05 Est GFR (MDRD) Af Amer > 60 (>60) 06/20/22 04:05 Est GFR (MDRD) Non-Af > 60 (>60) 06/20/22 04:05 Glucose 116 mg/dL (65-99) H 06/20/22 04:05 POC Glucose (mg/dL) 146 mg/dL (65-99) H 06/20/22 10:56 Calcium 8.4 mg/dL (8.5-10.1) L 06/20/22 04:05 Corrected Calcium 9.8 mg/dL (8.5-10.1) 06/20/22 04:05 Magnesium 1.9 mg/dL (2.0-2.9) L 06/20/22 04:05 Total Bilirubin 0.60 mg/dL (0.2-1.0) 06/20/22 04:05 AST 18 Units/L (15-37) 06/20/22 04:05 ALT 20 Units/L (12-78) 06/20/22 04:05 Alkaline Phosphatase 43 Units/L (46-116) L 06/20/22 04:05 Troponin I High Sens 4.0 ng/L (4.0-60.0) 06/17/22 12:27 Total Protein 6.2 g/dL (6.4-8.2) L 06/20/22 04:05 Albumin 2.2 g/dL (3.4-5.0) L 06/20/22 04:05 Globulin 4.0 g/dL (2.5-4.5) 06/20/22 04:05 Albumin/Globulin Ratio 0.6 Ratio (1.1-2.1) L 06/20/22 04:05 Lipase 114 Units/L (73-393) 06/17/22 12:27 Specimen Type Clean catch urine 06/17/22 15:37 Urine Color Dark yellow (YELLOW) 06/17/22 15:37 Urine Appearance Clear (CLEAR) 06/17/22 15:37 Urine pH 6.5 (5.0 - 8.0) 06/17/22 15:37 Ur Specific [place] 1.010 (1.000-1.030) 06/17/22 15:37 Urine Protein 2+ (NEGATIVE) 06/17/22 15:37 Urine Glucose (UA) Negative (NEGATIVE) 06/17/22 15:37 Urine Ketones 1+ (NEGATIVE) 06/17/22 15:37 Urine Blood 1+ (NEGATIVE) 06/17/22 15:37 Urine Nitrite Negative (NEGATIVE) 06/17/22 15:37 Urine Bilirubin Negative (NEGATIVE) 06/17/22 15:37 Urine Urobilinogen 1+ (NORMAL) 06/17/22 15:37 Ur Leukocyte Esterase 1+ (NEGATIVE) 06/17/22 15:37 Urine RBC 0-2 /HPF (0-3) 06/17/22 15:37 Urine WBC None seen /HPF (0-5) 06/17/22 15:37 Ur Squamous Epith Cells Rare /HPF (NEGATIVE) 06/17/22 15:37 Urine Bacteria Trace /HPF (NEGATIVE) 06/17/22 15:37 Urine Mucus Rare /HPF (NEGATIVE) 06/17/22 15:37 Ur Culture Indicated? No/not indicated 06/17/22 15:37 Assessment and Plan 1: perforated DU . peritonitis s/p laparotomy , closure and plication perforated DU . same PO care . OOB with binder , to advance diet . d/c in am . Problem Patient Problems: Patient Problems (Updated 06/19/22 @ 08:58 by SUKHI HAGAN) Intra-abdominal free air of unknown etiology (Acute) K66.8
[2022-06-20] MEDS: ZOFRAN INJ 4 MG VIAL IVP PRN (13:19)
[2022-06-20] MEDS ORDERED: MAGNESIUM SULFATE 1 GRAM/100 mL PREMIX 1 G/100 ML BAG IV ONE ×2 (17:37)
[2022-06-20] MEDS ORDERED: MICRO K EXTEN CAP 10 MEQ PO ONE (17:37)
[2022-06-20] MEDS: MAGNESIUM SULFATE 1 GRAM/100 mL PREMIX 1 G/100 ML BAG IV PRN ×2 (17:50→18:47)
[2022-06-20] MEDS: ATIVAN TAB 1 MG PO PRN (20:23)
[2022-06-21] MEDS: D5 1/2 NS 1,000 ML 1,000 ML IV SCH ×2 (03:02→18:22)
[2022-06-21] MEDS: FLAGYL IV PREMIX 500 MG BAG 500 MG/100 ML BAG IV SCH ×3 (03:02→20:15)
[2022-06-21] MEDS: DILAUDID INJ IVP PRN ×4 (03:35→20:07)
[2022-06-21] MEDS: LEVAQUIN PREMIX IV 750 MG 750 MG/150 ML BAG IV SCH (08:23)
[2022-06-21] MEDS: NICOTINE PATCH TD SCH (08:23)
[2022-06-21] MEDS: PROTONIX INJ 40 MG VIAL IVP SCH ×2 (08:24→20:24)
[2022-06-21] MEDS: LOVENOX INJ 40 MG SYR SC SCH (08:24)
[2022-06-21] MEDS: ZOFRAN INJ 4 MG VIAL IVP PRN (16:03)
[2022-06-21] MEDS: ATIVAN TAB 1 MG PO PRN (21:45)
[2022-06-22] MEDS: FLAGYL IV PREMIX 500 MG BAG 500 MG/100 ML BAG IV SCH ×3 (03:13→20:21)
[2022-06-22] MEDS: D5 1/2 NS 1,000 ML 1,000 ML IV SCH ×2 (05:27→19:24)
[2022-06-22] MEDS: DILAUDID INJ IVP PRN ×4 (05:28→20:25)
[2022-06-22 05:30] LABS: BASOPHILS # (AUTO) 0.1 X10^3/uL (0.0-0.1); EOSINOPHILS # (AUTO) 0.4 x10^3/uL (0.0-0.2); HEMOGLOBIN 11.4 g/dL (13.5-18.0); LYMPHOCYTES # (AUTO) 1.9 X10^3/uL (1.3-2.9); MONOCYTES # (AUTO) 2.5 x10^3/uL (0.3-0.8); RED CELL DISTRIBUTION WIDTH 13.9 % (11.6-16.5)
[2022-06-22 05:34] LABS: BASOPHILS % (AUTO) 0.4 % (0.2-1.0); HEMATOCRIT 33.5 % (42.0-54.0); LYMPHOCYTES % (AUTO) 14.7 % (21.0-51.0); MEAN CORPUSCULAR HEMOGLOBIN 30.7 pg (27.0-34.0); MEAN CORPUSCULAR HGB CONC 34.1 g/dL (33.0-35.0); MEAN CORPUSCULAR VOLUME 90.1 fL (80.0-100.0); MEAN PLATELET VOLUME 8.7 fL (7.4-11.0); MONOCYTES % (AUTO) 19.8 % (0.0-13.0); NEUTROPHILS # (AUTO) 7.9 x10^3/uL (2.2-4.8); NEUTROPHILS % (AUTO) 62.1 % (42.0-75.0); RED BLOOD COUNT 3.72 X10^6/uL (4.7-6.0)
[2022-06-22 05:36] LABS: ALANINE AMINOTRANSFERASE 12 Units/L (12-78); ALBUMIN 1.9 g/dL (3.4-5.0); ALKALINE PHOSPHATASE 36 Units/L (46-116); ASPARTATE AMINO TRANSFERASE 16 Units/L (15-37); BLOOD UREA NITROGEN 5 mg/dL (7-18); CALCIUM 7.9 mg/dL (8.5-10.1); CARBON DIOXIDE 28.8 mmol/L (21-32); CHLORIDE 100 mmol/L (98-107); COR CA(FOR HYPOALB) 9.6 mg/dL (8.5-10.1); CREATININE 0.61 mg/dL (0.70-1.30); MAGNESIUM 1.5 mg/dL (2.0-2.9); SODIUM 134 mmol/L (136-145); TOTAL PROTEIN 5.3 g/dL (6.4-8.2); eGFR NON BLACK RACES > 60 (>60)
[2022-06-22] MEDS ORDERED: KLOR-CON ONE (05:52)
[2022-06-22] MEDS ORDERED: MAGNESIUM SULFATE 1 GRAM/100 mL PREMIX 1 G/100 ML BAG IV ONE ×2 (05:52→07:02)
[2022-06-22] MEDS: MAGNESIUM SULFATE 1 GRAM/100 mL PREMIX 1 G/100 ML BAG IV PRN ×2 (05:59→07:08)
[2022-06-22 06:09] LABS: WHITE BLOOD COUNT 12.6 X10^3/uL (3.6-10.0)
[2022-06-22 06:11] LABS: GIANT PLATELET RARE; PLATELET MORPHOLOGY COMMENT ABNORMAL (NORMAL); SCHISTOCYTES SLIGHT; TARGET CELLS SLIGHT
[2022-06-22] MEDS: PROTONIX INJ 40 MG VIAL IVP SCH ×2 (09:10→20:24)
[2022-06-22] MEDS: LEVAQUIN PREMIX IV 750 MG 750 MG/150 ML BAG IV SCH (09:10)
[2022-06-22] MEDS: LOVENOX INJ 40 MG SYR SC SCH (09:11)
[2022-06-22] MEDS: NICOTINE PATCH TD SCH (09:11)
[2022-06-22] MEDS: ZOFRAN INJ 4 MG VIAL IVP PRN ×2 (11:32→16:22)
--- NOTE | 2022-06-22 16:12 | DR.PROGNOT ---
HOSPITAL PROGRESS NOTE Progress Note for Day of: Progress Note Date: 06/22/22 Chief Complaint Chief Complaint: PO day 4 c/o moderate abdominal pain , nurses report poor intake . and unsteady when OOB . Pt doesn't have good home support and help . afebrile . Past Medical Family Social History Past Med/Fam/Surg Hx: No changes since H&P Allergies: Allergies No Known Drug Allergies Allergy (Verified 09/10/21 11:50) Review Of Systems ROS: No change since H&P Vital Signs Vital Signs: Temperature 98.5 F Pulse Rate [Left Brachial] 85 Pulse Rate 80 Respiratory Rate 22 Blood Pressure [Right Arm] 147/88 Blood Pressure 138/85 O2 Sat by Pulse Oximetry 98 Physical Exam Oriented: Normal Respiratory: Normal Cardiovascular: Normal GI:Auscultation: Normal GI:Palpation: Normal GI: Tenderness: Diffuse (moderate , BS+ ) Mood Description: Calm Speech Pattern: Clear and Appropriate Laboratory and Diagnostics Result Diagrams: 06/22/22 04:20 06/22/22 04:20 Labs: 06/17/22 17:04 Peritoneal Fluid Wound Gram Stain - Final 06/17/22 17:04 Peritoneal Fluid Wound Culture - Final Staphylococcus Epidermidis Laboratory WBC 12.6 X10^3/uL (3.6-10.0) H 06/22/22 04:20 RBC 3.72 X10^6/uL (4.7-6.0) L 06/22/22 04:20 Hgb 11.4 g/dL (13.5-18.0) L 06/22/22 04:20 Hct 33.5 % (42.0-54.0) L 06/22/22 04:20 MCV 90.1 fL (80.0-100.0) 06/22/22 04:20 MCH 30.7 pg (27.0-34.0) 06/22/22 04:20 MCHC 34.1 g/dL (33.0-35.0) 06/22/22 04:20 RDW 13.9 % (11.6-16.5) 06/22/22 04:20 Plt Count 312 X10^3/uL (150.0-450.0) 06/22/22 04:20 Plt Count Comment Adequate (ADEQUATE) 06/22/22 04:20 MPV 8.7 fL (7.4-11.0) 06/22/22 04:20 Neut % (Auto) 62.1 % (42.0-75.0) 06/22/22 04:20 Lymph % (Auto) 14.7 % (21.0-51.0) L 06/22/22 04:20 [place] % (Auto) 19.8 % (0.0-13.0) H 06/22/22 04:20 Eos % (Auto) 3.0 % (0.9-2.9) H 06/22/22 04:20 Baso % (Auto) 0.4 % (0.2-1.0) 06/22/22 04:20 Neut # (Auto) 7.9 x10^3/uL (2.2-4.8) H 06/22/22 04:20 Lymph # (Auto) 1.9 X10^3/uL (1.3-2.9) 06/22/22 04:20 [place] # (Auto) 2.5 x10^3/uL (0.3-0.8) H 06/22/22 04:20 Eos # (Auto) 0.4 x10^3/uL (0.0-0.2) H 06/22/22 04:20 Baso # (Auto) 0.1 X10^3/uL (0.0-0.1) 06/22/22 04:20 Absolute Nucleated RBC 0.1 /100WBC 06/22/22 04:20 Plt Clumps, EDTA Rare 06/22/22 04:20 Giant Platelets Rare 06/22/22 04:20 Plt Morphology Comment Abnormal (NORMAL) 06/22/22 04:20 RBC Morphology Abnormal (NORMAL) 06/22/22 04:20 Target Cells Slight A 06/22/22 04:20 Schistocytes Slight A 06/22/22 04:20 Sodium 134 mmol/L (136-145) L 06/22/22 04:20 Corrected Sodium TNP 06/22/22 04:20 Potassium 3.4 mmol/L (3.5-5.1) L 06/22/22 04:20 Chloride 100 mmol/L (98-107) 06/22/22 04:20 Carbon Dioxide 28.8 mmol/L (21-32) 06/22/22 04:20 BUN 5 mg/dL (7-18) L 06/22/22 04:20 Creatinine 0.61 mg/dL (0.70-1.30) L 06/22/22 04:20 Est GFR (MDRD) Af Amer > 60 (>60) 06/22/22 04:20 Est GFR (MDRD) Non-Af > 60 (>60) 06/22/22 04:20 Glucose 92 mg/dL (65-99) 06/22/22 04:20 POC Glucose (mg/dL) 96 mg/dL (65-99) 06/22/22 11:40 Calcium 7.9 mg/dL (8.5-10.1) L 06/22/22 04:20 Corrected Calcium 9.6 mg/dL (8.5-10.1) 06/22/22 04:20 Magnesium 1.5 mg/dL (2.0-2.9) L 06/22/22 04:20 Total Bilirubin 0.50 mg/dL (0.2-1.0) 06/22/22 04:20 AST 16 Units/L (15-37) 06/22/22 04:20 ALT 12 Units/L (12-78) 06/22/22 04:20 Alkaline Phosphatase 36 Units/L (46-116) L 06/22/22 04:20 Troponin I High Sens 4.0 ng/L (4.0-60.0) 06/17/22 12:27 Total Protein 5.3 g/dL (6.4-8.2) L 06/22/22 04:20 Albumin 1.9 g/dL (3.4-5.0) L 06/22/22 04:20 Globulin 3.4 g/dL (2.5-4.5) 06/22/22 04:20 Albumin/Globulin Ratio 0.6 Ratio (1.1-2.1) L 06/22/22 04:20 Lipase 114 Units/L (73-393) 06/17/22 12:27 Specimen Type Clean catch urine 06/17/22 15:37 Urine Color Dark yellow (YELLOW) 06/17/22 15:37 Urine Appearance Clear (CLEAR) 06/17/22 15:37 Urine pH 6.5 (5.0 - 8.0) 06/17/22 15:37 Ur Specific [place] 1.010 (1.000-1.030) 06/17/22 15:37 Urine Protein 2+ (NEGATIVE) 06/17/22 15:37 Urine Glucose (UA) Negative (NEGATIVE) 06/17/22 15:37 Urine Ketones 1+ (NEGATIVE) 06/17/22 15:37 Urine Blood 1+ (NEGATIVE) 06/17/22 15:37 Urine Nitrite Negative (NEGATIVE) 06/17/22 15:37 Urine Bilirubin Negative (NEGATIVE) 06/17/22 15:37 Urine Urobilinogen 1+ (NORMAL) 06/17/22 15:37 Ur Leukocyte Esterase 1+ (NEGATIVE) 06/17/22 15:37 Urine RBC 0-2 /HPF (0-3) 06/17/22 15:37 Urine WBC None seen /HPF (0-5) 06/17/22 15:37 Ur Squamous Epith Cells Rare /HPF (NEGATIVE) 06/17/22 15:37 Urine Bacteria Trace /HPF (NEGATIVE) 06/17/22 15:37 Urine Mucus Rare /HPF (NEGATIVE) 06/17/22 15:37 Ur Culture Indicated? No/not indicated 06/17/22 15:37 Assessment and Plan 1: perforated DU . peritonitis s/p laparotomy , closure and plication perforated DU . same PO care . OOB with binder , to advance diet . keep today and arrange for VNA in am , wheelchair . F/U in one week . Problem Patient Problems: Patient Problems (Updated 06/19/22 @ 08:58 by SUKHI HAGAN) Intra-abdominal free air of unknown etiology (Acute) K66.8
[2022-06-22] MEDS: ATIVAN TAB 1 MG PO PRN (20:24)
[2022-06-23] MEDS: DILAUDID INJ IVP PRN ×3 (01:44→12:24)
[2022-06-23] MEDS: FLAGYL IV PREMIX 500 MG BAG 500 MG/100 ML BAG IV SCH ×2 (03:03→13:00)
[2022-06-23] MEDS: D5 1/2 NS 1,000 ML 1,000 ML IV SCH ×2 (03:03→09:45)
[2022-06-23 04:59] LABS: BASOPHILS % (AUTO) 0.4 % (0.2-1.0); EOSINOPHILS # (AUTO) 0.2 x10^3/uL (0.0-0.2); EOSINOPHILS % (AUTO) 2.3 % (0.9-2.9); HEMATOCRIT 35.3 % (42.0-54.0); LYMPHOCYTES # (AUTO) 1.7 X10^3/uL (1.3-2.9); LYMPHOCYTES % (AUTO) 16.7 % (21.0-51.0); MEAN CORPUSCULAR HEMOGLOBIN 30.7 pg (27.0-34.0); MEAN CORPUSCULAR HGB CONC 34.1 g/dL (33.0-35.0); MEAN PLATELET VOLUME 7.8 fL (7.4-11.0); MONOCYTES # (AUTO) 1.9 x10^3/uL (0.3-0.8); MONOCYTES % (AUTO) 18.8 % (0.0-13.0); NEUTROPHILS # (AUTO) 6.1 x10^3/uL (2.2-4.8); NEUTROPHILS % (AUTO) 61.8 % (42.0-75.0); RED BLOOD COUNT 3.92 X10^6/uL (4.7-6.0); RED CELL DISTRIBUTION WIDTH 13.8 % (11.6-16.5); WHITE BLOOD COUNT 9.9 X10^3/uL (3.6-10.0)
[2022-06-23 05:16] LABS: ALANINE AMINOTRANSFERASE 11 Units/L (12-78); ALKALINE PHOSPHATASE 38 Units/L (46-116); ASPARTATE AMINO TRANSFERASE 10 Units/L (15-37); BLOOD UREA NITROGEN 3 mg/dL (7-18); CARBON DIOXIDE 29.3 mmol/L (21-32); CHLORIDE 101 mmol/L (98-107); COR CA(FOR HYPOALB) 9.6 mg/dL (8.5-10.1); CREATININE 0.75 mg/dL (0.70-1.30); MAGNESIUM 1.6 mg/dL (2.0-2.9); SODIUM 137 mmol/L (136-145); TOTAL PROTEIN 5.4 g/dL (6.4-8.2); eGFR NON BLACK RACES > 60 (>60)
[2022-06-23] MEDS ORDERED: MAGNESIUM SULFATE 1 GRAM/100 mL PREMIX 0 G/0 ML BAG IV ONE (08:20)
[2022-06-23] MEDS: PROTONIX INJ 40 MG VIAL IVP SCH (09:51)
[2022-06-23] MEDS: NICOTINE PATCH TD SCH (09:51)
[2022-06-23] MEDS: LOVENOX INJ 40 MG SYR SC SCH (09:51)
[2022-06-23] MEDS: LEVAQUIN PREMIX IV 750 MG 750 MG/150 ML BAG IV SCH (09:52)
--- NOTE | 2022-06-23 10:47 | DR.PROGNOT ---
HOSPITAL PROGRESS NOTE Progress Note for Day of: Progress Note Date: 06/23/22 Chief Complaint Chief Complaint: Pt was supposed to be D/C yesterday . he was unsteady , unable to walk without assistance , poor oral intake .. mild leukocytosis .. feelin g better today , doing OK on PT . WBC kayla today . afebrile . Past Medical Family Social History Past Med/Fam/Surg Hx: No changes since H&P Changes in Past Med/Fam/Surg Hx: no changes . Allergies: Allergies No Known Drug Allergies Allergy (Verified 09/10/21 11:50) Review Of Systems ROS: No change since H&P Vital Signs Vital Signs: Temperature 99.0 F Pulse Rate [Left Brachial] 85 Pulse Rate 83 Respiratory Rate 15 Blood Pressure [Right Arm] 147/88 Blood Pressure 125/87 O2 Sat by Pulse Oximetry 98 Physical Exam Oriented: Normal Respiratory: Normal Cardiovascular: Normal GI:Auscultation: Normal GI:Palpation: Normal GI: Tenderness: Diffuse (moderate , BS+ ) Mood Description: Calm Speech Pattern: Clear and Appropriate Laboratory and Diagnostics Result Diagrams: 06/23/22 04:05 06/23/22 04:05 Labs: 06/17/22 17:04 Peritoneal Fluid Wound Gram Stain - Final 06/17/22 17:04 Peritoneal Fluid Wound Culture - Final Staphylococcus Epidermidis Laboratory WBC 9.9 X10^3/uL (3.6-10.0) 06/23/22 04:05 RBC 3.92 X10^6/uL (4.7-6.0) L 06/23/22 04:05 Hgb 12.0 g/dL (13.5-18.0) L 06/23/22 04:05 Hct 35.3 % (42.0-54.0) L 06/23/22 04:05 MCV 90.0 fL (80.0-100.0) 06/23/22 04:05 MCH 30.7 pg (27.0-34.0) 06/23/22 04:05 MCHC 34.1 g/dL (33.0-35.0) 06/23/22 04:05 RDW 13.8 % (11.6-16.5) 06/23/22 04:05 Plt Count 376 X10^3/uL (150.0-450.0) 06/23/22 04:05 Plt Count Comment Adequate (ADEQUATE) 06/22/22 04:20 MPV 7.8 fL (7.4-11.0) 06/23/22 04:05 Neut % (Auto) 61.8 % (42.0-75.0) 06/23/22 04:05 Lymph % (Auto) 16.7 % (21.0-51.0) L 06/23/22 04:05 [place] % (Auto) 18.8 % (0.0-13.0) H 06/23/22 04:05 Eos % (Auto) 2.3 % (0.9-2.9) 06/23/22 04:05 Baso % (Auto) 0.4 % (0.2-1.0) 06/23/22 04:05 Neut # (Auto) 6.1 x10^3/uL (2.2-4.8) H 06/23/22 04:05 Lymph # (Auto) 1.7 X10^3/uL (1.3-2.9) 06/23/22 04:05 [place] # (Auto) 1.9 x10^3/uL (0.3-0.8) H 06/23/22 04:05 Eos # (Auto) 0.2 x10^3/uL (0.0-0.2) 06/23/22 04:05 Baso # (Auto) 0.0 X10^3/uL (0.0-0.1) 06/23/22 04:05 Absolute Nucleated RBC 0.0 /100WBC 06/23/22 04:05 Plt Clumps, EDTA Rare 06/22/22 04:20 Giant Platelets Rare 06/22/22 04:20 Plt Morphology Comment Abnormal (NORMAL) 06/22/22 04:20 RBC Morphology Abnormal (NORMAL) 06/22/22 04:20 Target Cells Slight A 06/22/22 04:20 Schistocytes Slight A 06/22/22 04:20 Sodium 137 mmol/L (136-145) 06/23/22 04:05 Corrected Sodium TNP 06/23/22 04:05 Potassium 3.2 mmol/L (3.5-5.1) L 06/23/22 04:05 Chloride 101 mmol/L (98-107) 06/23/22 04:05 Carbon Dioxide 29.3 mmol/L (21-32) 06/23/22 04:05 BUN 3 mg/dL (7-18) L 06/23/22 04:05 Creatinine 0.75 mg/dL (0.70-1.30) 06/23/22 04:05 Est GFR (MDRD) Af Amer > 60 (>60) 06/23/22 04:05 Est GFR (MDRD) Non-Af > 60 (>60) 06/23/22 04:05 Glucose 98 mg/dL (65-99) 06/23/22 04:05 POC Glucose (mg/dL) 98 mg/dL (65-99) 06/22/22 16:27 Calcium 8.0 mg/dL (8.5-10.1) L 06/23/22 04:05 Corrected Calcium 9.6 mg/dL (8.5-10.1) 06/23/22 04:05 Magnesium 1.6 mg/dL (2.0-2.9) L 06/23/22 04:05 Total Bilirubin 0.30 mg/dL (0.2-1.0) 06/23/22 04:05 AST 10 Units/L (15-37) L 06/23/22 04:05 ALT 11 Units/L (12-78) L 06/23/22 04:05 Alkaline Phosphatase 38 Units/L (46-116) L 06/23/22 04:05 Troponin I High Sens 4.0 ng/L (4.0-60.0) 06/17/22 12:27 Total Protein 5.4 g/dL (6.4-8.2) L 06/23/22 04:05 Albumin 2.0 g/dL (3.4-5.0) L 06/23/22 04:05 Globulin 3.4 g/dL (2.5-4.5) 06/23/22 04:05 Albumin/Globulin Ratio 0.6 Ratio (1.1-2.1) L 06/23/22 04:05 Lipase 114 Units/L (73-393) 06/17/22 12:27 Specimen Type Clean catch urine 06/17/22 15:37 Urine Color Dark yellow (YELLOW) 06/17/22 15:37 Urine Appearance Clear (CLEAR) 06/17/22 15:37 Urine pH 6.5 (5.0 - 8.0) 06/17/22 15:37 Ur Specific [place] 1.010 (1.000-1.030) 06/17/22 15:37 Urine Protein 2+ (NEGATIVE) 06/17/22 15:37 Urine Glucose (UA) Negative (NEGATIVE) 06/17/22 15:37 Urine Ketones 1+ (NEGATIVE) 06/17/22 15:37 Urine Blood 1+ (NEGATIVE) 06/17/22 15:37 Urine Nitrite Negative (NEGATIVE) 06/17/22 15:37 Urine Bilirubin Negative (NEGATIVE) 06/17/22 15:37 Urine Urobilinogen 1+ (NORMAL) 06/17/22 15:37 Ur Leukocyte Esterase 1+ (NEGATIVE) 06/17/22 15:37 Urine RBC 0-2 /HPF (0-3) 06/17/22 15:37 Urine WBC None seen /HPF (0-5) 06/17/22 15:37 Ur Squamous Epith Cells Rare /HPF (NEGATIVE) 06/17/22 15:37 Urine Bacteria Trace /HPF (NEGATIVE) 06/17/22 15:37 Urine Mucus Rare /HPF (NEGATIVE) 06/17/22 15:37 Ur Culture Indicated? No/not indicated 06/17/22 15:37 Assessment and Plan 1: perforated DU . peritonitis s/p laparotomy , closure and plication perforated DU . same PO care as out Pt . OOB with binder , to advance diet . F/U in 0ne week .. Problem Patient Problems: Patient Problems (Updated 06/19/22 @ 08:58 by SUKHI HAGAN) Intra-abdominal free air of unknown etiology (Acute) K66.8
[2022-06-23] MEDS: MAGNESIUM SULFATE 1 GRAM/100 mL PREMIX 1 G/100 ML BAG IV PRN (11:24)
[2022-06-23] MEDS ORDERED: MAGNESIUM SULFATE 1 GRAM/100 mL PREMIX 1 G/100 ML BAG IV ONE (13:33)
[2022-06-23 15:07] VITALS: BP 159/99
== END 2022-06-23 16:40 | disposition home or self-care (01) | DRG 326 ==
LOC: ER 12:13 → ICU 15:06
PROVIDERS: ADMIT Surgery; ATTEND Surgery
DX: K66.8 Other specified disorders of peritoneum; B95.7 Other staphylococcus as the cause of diseases classified elsewhere; R10.84 Generalized abdominal pain; K65.8 Other peritonitis; K26.5 Chronic or unspecified duodenal ulcer with perforation; R26.89 Other abnormalities of gait and mobility; Z98.890 Other specified postprocedural states